=== PATIENT | female | born 1980 | race Asian ===

== ENCOUNTER 2023-08-15 18:12 | Emergency (ER) | payer OTHER ==
[~2023-08-15] VITALS: Ht 152.4 cm; Wt 61.2 kg
[2023-08-15 18:18] VITALS: BP 131/88
[2023-08-15] MEDS ORDERED: SUMAtriptan Succinate 6 MG/0.5 ML Vial SC ONE (19:10)
[2023-08-15] MEDS ORDERED: CELEBREX200 MG PO (20:01)
== END 2023-08-15 19:30 | disposition home or self-care (01) ==
LOC: ER 18:12
DX: G43.109 Migraine with aura, not intractable, without status migrainosus (principal); L25.9 Unspecified contact dermatitis, unspecified cause
CPT/HCPCS: 99283; J3030

== ENCOUNTER 2024-03-05 08:15 | Emergency (ER) | payer OTHER ==
[~2024-03-05] VITALS: Ht 152.4 cm; Wt 64.4 kg
[~2024-03-05 08:15] MED LIST: CELEBREX200 MG PO
[2024-03-05 08:43] VITALS: BP 104/83
[2024-03-05 09:27] LABS: Influenza A, PCR NEGATIVE (NEGATIVE); Influenza B, PCR NEGATIVE (NEGATIVE); Resp Syncytial Virus, PCR NEGATIVE (NEGATIVE); SARS-Cov-2 (COVID-19) PCR, MMC NEGATIVE (NEGATIVE)
== END 2024-03-05 08:47 | disposition home or self-care (01) ==
LOC: ER 08:15
PROVIDERS: Physician Assistant
DX: B34.9 Viral infection, unspecified (principal); Z79.899 Other long term (current) drug therapy
CPT/HCPCS: 0241U; 99283

== ENCOUNTER → 2024-07-01 | Outpatient (CLI) | payer OTHER ==
[2024-07-05 08:13] LABS: C. TRACHOMATIS BY TMA,THINPREP Negative (Negative); N. GONORRHOEAE BY TMA,THINPREP Negative (Negative); SPECIMEN SOURCE Cervical
== END ==
LOC: LAB SHORT 13:38 → LAB 13:38
PROVIDERS: Obstetrics & Gynecology
DX: Z01.419 Encounter for gynecological examination (general) (routine) without abnormal findings (principal); Z11.3 Encounter for screening for infections with a predominantly sexual mode of transmission
CPT/HCPCS: 87491; 87591

== ENCOUNTER 2024-11-28 12:03 | Emergency (ER) | payer OTHER ==
[~2024-11-28] VITALS: Ht 152.4 cm; Wt 59.9 kg
[2024-11-28 12:27] VITALS: BP 133/91
[2024-11-28] MEDS ORDERED: Ketorolac Tromethamine 15mg Vial IM ONE (12:35)
[2024-11-28] MEDS ORDERED: Robaxin750 MG PO (12:37)
[2024-11-28] MEDS ORDERED: GABA300 PO (12:37)
== END 2024-11-28 12:47 | disposition home or self-care (01) ==
LOC: ER 12:03
DX: M54.42 Lumbago with sciatica, left side (principal); M54.17 Radiculopathy, lumbosacral region; Z79.899 Other long term (current) drug therapy
CPT/HCPCS: 96372; 99282-25; A9270; J1885